=== PATIENT | female | born 1955 | race Caucasian/White ===

== ENCOUNTER 2024-06-03 09:55 | Day surgery (SDC) | payer MEDICARE, OTHER ==
[~2024-06-03] VITALS: Ht 152.4 cm; Wt 74.0 kg
[~2024-06-03 09:55] MED LIST: LR 1,000 ML IV SCH; Ondansetron 4 MG/2 ML VIAL IV PRN
[2024-06-03] MEDS ORDERED: NEURONTIN100 MG/CAP PO (10:34)
[2024-06-03] MEDS ORDERED: GLUCOPHAGE XR500 M1 PO (10:35)
[2024-06-03] MEDS ORDERED: CITRACAL + D CA1 TAB (10:35)
[2024-06-03] MEDS ORDERED: ZYRTEC 10MG10 MG PO (10:36)
[2024-06-03] MEDS ORDERED: ASPIRIN 81M81 MG/TA2 PO (10:37)
[2024-06-03] MEDS ORDERED: COZAAR 25MG25 MG/TAB PO (10:38)
[2024-06-03] MEDS ORDERED: ZETIA 10MG TAB10 MG PO (10:38)
[2024-06-03] MEDS ORDERED: JARDIANCE25 (10:38)
[2024-06-03] MEDS ORDERED: THE MEDICINE S200 M2 PO (10:38)
[2024-06-03] MEDS ORDERED: CRESTOR5 MG PO (10:39)
[2024-06-03] MEDS ORDERED: ALDACTONE 25MG25 M1 PO (10:41)
[2024-06-03] MEDS ORDERED: fentaNYL 50 MCG/ML 2 ML VIAL ONE (10:57)
[2024-06-03] MEDS ORDERED: Lidocaine PF 2% (20 MG/ML) 5 ML VIAL ONE (10:57)
[2024-06-03 11:35] VITALS: BP 99/81; PULSE 72
[2024-06-03 11:45] VITALS: BP 111/71; PULSE 73
[2024-06-03 11:55] VITALS: BP 113/64; PULSE 75
--- NOTE | 2024-06-03 14:07 | NUR ---
1135 PATIENT RETURNS TO [facility] [place] [facility] VIA CART. PT AWAKE AND ALERT. RESPIRATIONS UNLABORED. AMBULATED TO RECLINER CHAIR WITH 2:1 SBA. PT DENIES NAUSEA OR ABDOMINAL PAIN. HOOKED UP TO MONITOR AND VS OBTAINED. CALL LIGHT AT SIDE AND PRESENT. 1140 PATIENT TOLERATING WATER AND MUFFIN WITHOUT NAUSEA OR DIFFICULTY SWALLOWING. 1150 IN ROOM SPEAKING WITH PATIENT. 1200 D/C INSTRUCTIONS REVIEWED WITH PATIENT. PT VERBALIZED UNDERSTANDING AND A COPY OF INSTRUCTIONS PROVIDED IN D/C FOLDER. 1205 PATIENT DRESSES SELF. 1215 PATIENT DISCHARGED FROM UNIT VIA W/C TO A PERSONAL VEHICLE. PT LEFT HOSPITAL IN STABLE CONDITION.
[2024-06-03 14:14] VITALS: BP 172/72; PULSE 83; TEMP 97.9
== END 2024-06-03 12:15 | disposition home or self-care (01) ==
LOC: SDCO 09:55
DX: Z12.11 Encounter for screening for malignant neoplasm of colon (principal); D12.4 Benign neoplasm of descending colon; K64.0 First degree hemorrhoids; K57.30 Diverticulosis of large intestine without perforation or abscess without bleeding; Z86.010 Personal history of colon polyps; Z87.891 Personal history of nicotine dependence; Z85.118 Personal history of other malignant neoplasm of bronchus and lung
CPT/HCPCS: J2704; J3010